=== PATIENT | female | born 1940 | race Caucasian/White ===

== ENCOUNTER → 2024-06-20 10:22 | Day surgery (SDC) | payer MEDICARE, OTHER, SELFPAY ==
[2024-06-20 11:35] LABS: % Basophils 0.5 % (0-2); % Eosinophils 2.5 % (0-6); % Immature Granulocytes 0.2 % (0-0.5); % Monocytes 10.4 % (1.7-9.3); % Neutrophils 60.4 % (42.2-75.2); Absolute Eosinophils 0.2 10^3/uL (0-0.7); Absolute Lymphocytes 1.6 10^3/uL (1.2-3.4); Absolute Monocytes 0.7 10^3/uL (0.1-0.6); Absolute Neutrophils 3.8 10^3/uL (1.4-6.5); Hemoglobin 12.8 g/dL (12.0-16.0); Mean Corpuscular Hgb 29.7 pg (27.0-31.0); Mean Corpuscular Volume 92.8 fL (81.0-99.0); Mean Platelet Volume 10.7 fL (7.4-10.4); Nucleated Red Blood Cells % 0 %; Platelet Count 299 10^3/uL (130-400); Red Blood Cell Count 4.31 10^6/uL (4.20-5.40); Red Cell Dist. Width 13.7 % (11.5-14.5); White Blood Cell Count 6.3 10^3/uL (4.8-10.8)
[2024-06-20 11:36] LABS: INR 0.97; PT 13.4 Sec (11.4-14.6)
[2024-06-20 11:37] LABS: APTT 43.2 Sec (23.4-35.0)
[2024-06-20 12:25] LABS: ALT (SGPT) 16 U/L (0-35); AST (SGOT) 19 U/L (14-36); Albumin 4.3 g/dl (3.5-5.0); Alkaline Phosphatase 107 U/L (38-126); Blood Urea Nitrogen 20 mg/dl (7-17); Calcium 9.3 mg/dl (8.4-10.2); Carbon Dioxide 22 mmol/L (22-30); Chloride 104 mmol/L (98-107); Glucose 174 mg/dl (70-99); Potassium 4.5 mmol/L (3.5-5.1); Sodium 139 mmol/L (135-145); Total Bilirubin 0.5 mg/dl (0.2-1.3); Total Protein 7.2 g/dl (6.3-8.2); eGFR 56.25
[2024-06-20 12:35] LABS: TSH Reflex To Free T4 1.63 uIU/ml (0.47-4.68)
[2024-06-20 13:12] LABS: Glycohemoglobin (HgbA1c) 7.4 % (4.0-5.6)
[2024-06-20 17:27] LABS: CA 125 22.4 U/mL (0-35)
== END ==
LOC: SDSPAT 10:22
PROVIDERS: ATTENDING PHYSICIAN Obstetrics & Gynecology Gynecologic Oncology; FAMILY PHYSICIAN Internal Medicine
DX: Z01.810 Encounter for preprocedural cardiovascular examination (principal); Z01.812 Encounter for preprocedural laboratory examination
CPT/HCPCS: 93005; 36415; 80053; 83036; 84443; 85025; 85610; 85730; 86304; 86850; 86900; 86901

== ENCOUNTER → 2024-06-24 10:17 | Outpatient (REF) | payer MEDICARE, OTHER, SELFPAY | LOC: RAD 10:17 | PROVIDERS: ATTENDING PHYSICIAN Obstetrics & Gynecology Gynecologic Oncology; FAMILY PHYSICIAN Internal Medicine | DX: C54.1 Malignant neoplasm of endometrium (principal); E11.9 Type 2 diabetes mellitus without complications; E78.2 Mixed hyperlipidemia; N18.9 Chronic kidney disease, unspecified | CPT/HCPCS: 71260; 74177; Q9967 ==

== ENCOUNTER 2024-07-02 06:04 | Day surgery (SDC) | payer MEDICARE, OTHER, SELFPAY ==
[2024-06-20 12:34] VITALS: BMI 48.3
--- NOTE | 2024-06-21 13:52 | PTCARENOTE ---
Abnormal EKG 06/20/[address] Madera, no further testing needed.
--- NOTE | 2024-06-25 13:19 | PTCARENOTE ---
Addendum entered by Felicia Gomez RN 06/25/24 13:27:
Hgb A1c 7.4 and GFR 56.25 both collected on 06/20/24 was also reported to Natalie @ 's office.
Original Note:
PTT 43.2 collected on 06/20/24; Natalie @ 's office was notified.
--- NOTE | 2024-07-01 05:54 | W.CON.GYNONC ---
Chief Complaint
-
Endometrial Cancer
History of Present Illness
83�year�old G0 woman presenting to me for management of endometrial cancer referred to me by . Patient apparently
had presented with couple days of bleeding postmenopausally. , An attempt was made to examine her in the office, pelvic
examination was difficult unable to place speculum and visualize the cervix. She was recommended to undergo D&C under
anesthesia. On May 29 she underwent dilation and curettage, sharp curettage of the endometrium and diagnostic
hysteroscopy was performed
Pathology shows grade 2 endometrioid adenocarcinoma, ER/PA positive, with intact mismatch repair proteins.
Past medical history significant for hypertension, type 2 diabetes, chronic kidney disease, obesity
past surgical history significant for bilateral total knee replacements, tonsillectomy
Medications include glimepiride and Lasix
Family history significant for mother with esophageal cancer, maternal grandfather with diabetes maternal grandmother with
stomach cancer
Social history significant for being single, lives and had provide [employer], denies tobacco alcohol or drug or marijuana use,
worked as a teacher
Allergies No�allergies�have�been�entered�for�this�patient.
Medications
calcium�magnesium�zinc�333�mg�133�mg�5�mg tablet
glimepiride�2�mg�tablet 1�p.o.�q.�day
Tylenol�325�mg�tablet prn
Medical History
Allergies
Allergies reflect when allergies were last updated in [employer].
latex Allergy (Verified 06/20/24 15:07)
Rash
sulfamethoxazole [From Bactrim] Allergy (Verified 06/20/24 14:54)
Rash
trimethoprim [From Bactrim] Allergy (Verified 06/20/24 14:54)
Rash
Physical Exam
Physical Exam
Pelvic�Examination: External�normal�labia,�urethra,�anus.� I�was�unable�to�examine�her�today�because�the�patient�could�not�get�on�the�examination�table�due�to�limited�range�of�motion involving�her�hips
General:�Well�developed,�well�nourished�patient.�In�no�acute�distress. Neck:�No�thyromegaly.�No�cervical�lymphadenopathy. Lungs:�Clear�to�auscultation.�Good�air�movement�bilaterally. Cardiac:�Regular�rate.�Regular�rhythm.�No�murmurs�appreciated.
Right�Breast:�No�masses�or�dimpling.�No�nipple�discharge. Left�Breast:�No�masses�or�dimpling.�No�nipple�discharge. Abdomen:�Abdomen�is�soft.�Non�tender�to�palpation.�Non�distended.�Hernia�present�in�the�Wide�mouth�umbilical�hernia.
Extremities:�No�edema.�Cyanosis�noted. Hematologic/Lymphatic:�No�palpable�lymphadenopathy. Musculoskeletal:�Normal�range�of�motion.�Strength�and�Tone�are�normal. Skin:�The�following�abnormality(ies)were�noted:�Bilateral�lower�extremities.
Neurologic:�Speech�is�fluent.�Normal�gait�and�station.�Cranial�nerves�intact.
Results
-
Diagnostic Imaging Report
SignedOrder #:[id number]
Exams: CT Chest/abd/pel W Iv Cont
PROCEDURE: CT Chest/abd/pel W Iv Cont
CLINICAL INDICATION: Endometrial carcinoma. Hysterectomy scheduled for July 02, 2024.
TECHNIQUE: Axial images through the chest, abdomen and pelvis following oral contrast and intravenous nonionic contrast administration with coronal and sagittal reformations. Automated dose reduction technique utilized.
COMPARISON: None.
FINDINGS:
Chest: Minimally heterogeneous appearance of the right lobe of the thyroid is noted. Evaluation is overall limited as a result of several factors including some beam hardening artifact from the patient's bilateral upper extremities and respiratory
motion artifact without gross focal parenchymal mass/consolidation. The trachea and central airways are patent. Residual oral contrast is seen within a nondilated thoracic esophagus. There is no gross significant hilar, mediastinal or bilateral
hilar lymphadenopathy. The heart is enlarged and there are likely coronary artery calcifications. Degenerative changes are seen within the thoracic spine.
Abdomen: Evaluation limited as a result of beam hardening artifact from the patient's bilateral upper extremities and lack of oral contrast opacification of portions of large and small bowel including the large bowel distal to the distal transverse
colon. Liver and spleen are particularly limited by beam hardening artifact from the patient's bilateral upper extremities without gross focal space-occupying lesion. Gallbladder is somewhat prominent in size without gross focal intrinsic
abnormality. Pancreas is somewhat atrophic without gross focal abnormality. Renal excretion is symmetric. There are a few nonspecific subcentimeter retroperitoneal lymph nodes. There is no intestinal obstruction or free air. There is a left-sided
anterior pelvic wall hernia containing loop of low lying nonobstructed transverse colon. There is diverticulosis of the sigmoid and descending colon. Degenerative changes are seen throughout the lumbar spine.
Pelvis: The urinary bladder is incompletely distended. Cannot exclude small bubble of air anteriorly within the urinary bladder. There is no true pelvis free fluid or significant lymphadenopathy. Degenerative changes of both hips are seen. Relative
small size uterus without gross focal intrinsic abnormality on this study.
IMPRESSION:
Evaluation limited by marked beam hardening artifact as well as some respiratory motion artifact, particularly limited are evaluation of the lungs, liver and spleen without gross focal space-occupying lesion.
Anterior left sided pelvic wall hernia containing loop of unremarkable low lying transverse colon, nonobstructed.
Distal colonic diverticulosis.
Nonspecific small volume oral contrast seen in the esophagus.
Incompletely distended urinary bladder, cannot exclude small air bubble within. Has there been recent urinary bladder instrumentation?
Few small nonspecific subcentimeter retroperitoneal lymph nodes.
Relative small size uterus without gross focal intrinsic abnormality seen on this study, patient with known history of endometrial carcinoma. No significant pelvic lymphadenopathy.
Electronically signed by Abe Kramer MD, 06/24/2024 5:12 PM
[employer] Dose Report: Up-to-date CT equipment and radiation dose reduction techniques were employed. CTDIvol: 24.0 - 53.1 mGy. DLP: 3036 mGy-cm.
Dictated By: Abe Kramer MD.
Dictated Date & Time: 06/24/24 1701
Impression / Plan
-
I�spoke�with�the�patient�and�her�friend�about�diagnosis�of�endometrial�cancer�presentation�as�well�as�management.�She�has�risk
factors�including�obesity�with�BMI�of�46,�hypertension�and�diabetes.�Unfortunately�during�today's�visit�I�was�unable�to�perform�a
pelvic�exam.�In�the�future�visits�we�will�ensure�that�she�arrives�for�an�exam�in�one�of�the�sites�where�we�have�motorized�tables. I�recommend�further�evaluation�with�CMP�CBC�CA125,�labs�including�hemoglobin�A1c�and�TSH�will�be�obtained
I�contacted�her�primary�care�physician�because�of�hypertension�in�the�office�today,�he�will�see�and�evaluate�patient�for�preoperative
evaluation�and�possible�antihypertensive�medication�I�recommend�a�CT�of�chest�abdomen�and�pelvis�with�IV�and�oral�contrast�to�be
done�next�week�her�treatment�will�be�surgery,�we�will�attempt�robotic�assisted�total�laparoscopic�hysterectomy�bilateral�salpingooophorectomy�,�Injection�of�cervix�with�ICG�dye�and�mapping�and�identification�and�excision�of�sentinel�lymph�nodes�in�th
e�pelvis. She�understands�that�surgery�will�be�done[facility]at[facility].�Risk�of�surgery�is�infection�bleeding�injury�to�adjacent�organs
DVT�pulmonary�embolism�and�cardiovascular�complications.�Very�likely�uterine�manipulator�cannot�be�placed�in�this�patient
because�of�virginal�state.�It�is�unclear�whether�the�uterine�specimen�can�be�delivered�through�the�vagina�or�whether�the�patient�will
need�mini�laparotomy�for�extraction�of�specimen.�We�discussed�that�surgery�is�outpatient�unless�she�has�needs�for�staying�in�the
hospital�postoperatively.�I�will�see�patients�2�weeks�after�surgery�and�evaluate�pathology�and�discuss�whether�she�needs�any adjuvant�treatment.�
[2024-07-02] VITALS (20 sets, daily range): BP systolic 100–158; BP diastolic 43–84; BMI 48.3
[2024-07-02] MEDS: NEURONTIN 300 MG PO (06:22)
[2024-07-02] MEDS: MOBIC 15 MG PO (06:22)
[2024-07-02] MEDS: TYLENOL 1000 MG PO (06:22)
[2024-07-02] MEDS: HEPARIN 5000 UNITS SC (06:24)
[2024-07-02 06:44] LABS: Glucose - Point of Care 175 mg/dl (70-99)
[2024-07-02] MEDS: NORMOSOL-R/PLASMALYTE-A 1000 IV ×2 (06:47→10:37)
[2024-07-02 09:12] LABS: Glucose - Point of Care 191 mg/dl (70-99)
[2024-07-02 09:52] LABS: Glucose - Point of Care 222 mg/dl (70-99)
[2024-07-02] MEDS: DILAUDID 0.25 MG IV ×2 (10:15→10:42)
[2024-07-02 10:22] LABS: Hematocrit 37.2 % (37.0-47.0); Hemoglobin 12.2 g/dL (12.0-16.0); Mean Corp Hgb Conc. 32.8 g/dL (33.0-37.0); Mean Corpuscular Hgb 30.6 pg (27.0-31.0); Mean Corpuscular Volume 93.2 fL (81.0-99.0); Mean Platelet Volume 10.5 fL (7.4-10.4); Platelet Count 264 10^3/uL (130-400); Red Blood Cell Count 3.99 10^6/uL (4.20-5.40); Red Cell Dist. Width 13.8 % (11.5-14.5); White Blood Cell Count 11.4 10^3/uL (4.8-10.8)
[2024-07-02 10:30] LABS: Blood Urea Nitrogen 17 mg/dl (7-17); Calcium 8.5 mg/dl (8.4-10.2); Carbon Dioxide 21 mmol/L (22-30); Chloride 105 mmol/L (98-107); Estimated Creatinine Clearance 68 ml/min; Glucose 236 mg/dl (70-99); Potassium 4.3 mmol/L (3.5-5.1); Sodium 136 mmol/L (135-145); eGFR > 60.00
[2024-07-02] MEDS: NOVOLOG vial 1 UNITS SC ×2 (10:30→11:54)
--- NOTE | 2024-07-02 11:01 | CON.HOSP ---
Consultation
-
Date/Time Consultation Requested: 07/02/2024 at 9:47 AM
Date/Time Consultation Performed: 07/02/2024 at 11 AM
Requesting Provider: Dr. Abe Torres
Performing Provider: Dr. Hong Scott
Reason for Consultation: Medical management
Family Physician
-
Family Physician: NO INTERVIEW UNKNOWN
Chief Complaint
-
Admitted for endometrial cancer
History of Present Illness
83-year-old female with diagnosis of endometrial cancer. Preoperatively her CT showed an ambulatory hernia containing a loop of transverse colon. Dr. Torres performed robotic assisted total hysterectomy with removal of ovaries and extensive lysis
of adhesions in the pelvis. Unable to do lymph nodes because of poor visualization. Hernia was left alone
Medical History
Past Medical History
Past Medical History: Reports Other
Additional Past Medical History:
Obesity, sciatica, umbilical hernia, arthritis, spinal stenosis, diabetes, chronic kidney disease grade 2 endometrial adenocarcinoma ER/VA positive
Past Surgical History: Reports Other
Additional Past Surgical History:
Right total knee arthroplasty 2004, left total knee arthroplasty 2005, tonsillectomy and adenoidectomy
Social History
Tobacco: Non-smoker
Alcohol: None
Drug: None
Personal: Single
Living: Alone
Employment: Retired (Teacher)
Family History
Family History: Other (Grandmother with esophageal carcinoma maternal grandfather with diabetes, maternal grandmother with peptic ulcer)
Allergies / Home Medications
Allergies reflects when Allergies were last updated in [employer].
Home Medications with original date entered in [employer]
Allergy/Medication List:
Allergies
Allergy/AdvReac Type Severity Reaction Status Date / Time
latex Allergy Rash Verified 07/02/24 06:08
sulfamethoxazole Allergy Rash Verified 07/02/24 06:08
[From Bactrim]
trimethoprim [From Bactrim] Allergy Rash Verified 07/02/24 06:08
Home Medications
acetaminophen 500 mg capsule 1,000 mg PO Q6H PRN pain 06/20/24
calcium 600 mg-D3 20 mcg-magnesium 50 lv-Xp-ocppsw-todd-boron tablet (Calcium 600-D3 Plus (mag-zinc)) 1 tab PO DAILY 06/20/24
glimepiride 2 mg tablet 2 mg PO DAILY 06/20/24
Review of Systems
-
A 12 point Review of Systems was completed except as noted: Yes
Respiratory: Denies Trouble Breathing
Cardiac: Denies Chest Pain
Musculoskeletal: Reports Other (left buttock area pain)
Physical Exam
Vital Signs
Vital Signs
Temp Pulse Resp BP Pulse Ox
97.8 F 61 17 102/45 97
07/02/24 09:37 07/02/24 10:45 07/02/24 10:45 07/02/24 10:45 07/02/24 10:45
Physical Exam
General: No Apparent Distress and Comfortable
Respiratory: Clear
Cardiac: S1/S2 and Regular Rhythm
GI: Soft and Other (lap wounds)
Neuro: Awake, AO x 3 and Nonfocal/Grossly Intact
Psych: Intact Judgement
Laboratory Results
-
Laboratory Results
07/02/24 10:06
07/02/24 10:06
Impression / Plan
-
IMPRESSION/PLAN:
CT scan chest abdomen pelvis 06/24/2024-anterior left-sided pelvic wall hernia, distal colonic diverticulosis, incompletely distended urinary bladder subcentimeter retroperitoneal lymph nodes
# Diabetes
Patient takes glimepiride as outpatient,restart when patient able to take p.o.
For now Continue Accu-Cheks with sliding scale coverage
Hemoglobin A1c 7.4
# Grade 2 endometrial adenocarcinoma ER/VA positive
Status post hysterectomy and bilateral oophorectomy by Dr. Torres 07/02/2024
Postoperative care, pain control
# Questionable history of CKD however GFR is more than 60 presently
# Right bundle branch block on EKG from 06/20/2024-no previous EKG available for comparison
# Obesity with a BMI of 48
# DVT prophylaxis- Lovenox
# Full code
D/W [facility]
D/W
Thank you for the consultation, we will follow the patient with you.
[2024-07-02 11:54] LABS: Glucose - Point of Care 220 mg/dl (70-99)
--- NOTE | 2024-07-02 13:09 | OR.RPT ---
Operative Report
Operative Report
Date of procedure: July 02, 2024
Preoperative diagnosis: Grade 2 endometrioid adenocarcinoma of uterus
Postoperative diagnosis same plus umbilical hernia containing loop of transverse colon, and morbid obesity
Procedure:
Robotic assisted total laparoscopic hysterectomy, bilateral salpingo-oophorectomy, pelvic washings
Robotic assisted pelvic enterolysis
Tap block
Surgeon: Abe Torres
Construction Teacher: Cameron Urias PA-C, JAVON Light
Anesthesia: General Endotracheal intubation
Estimated blood loss 100 cc
Complication: None
Specimen: Pelvic washings, uterus cervix bilateral tubes and ovaries
Procedure in detail: This patient was taken to the operating room for definitive management of grade 2 endometrioid adenocarcinoma of the uterus. She is 83 years of age, has significant ambulatory dysfunction mostly wheelchair-bound, was unable to
undergo examination in the office because of inability to get on the examination table. She has morbid obesity, hypertension, chronic kidney disease, type 2 diabetes and underwent imaging studies preoperatively that documented presence of loop of
transverse colon and an umbilical hernia likely chronic. Upon arrival to the operating room she was placed in operating table with assistance from multiple individuals, she was unable to transfer herself onto the operating table. Appropriate IVs
were placed she was placed under general anesthesia and intubated without any difficulty she was placed in lithotomy position using yellowfin stirrups and she was prepped under her large pannus as well as on the abdomen perineum and upper thighs her
arms were protected with foam along the patient's side for the first time I examined her in the operating room and noted that the introitus is somewhat small the cervix is without any gross pathology but it resides high in the pelvis external
genitalia and vagina is otherwise unremarkable. There is a sebaceous cyst in the right labia majora less than 1 cm in size.
Timeout procedure was carried out. She received 3 g of Ancef and 500 mg of Flagyl. She had already received heparin for prophylaxis subcutaneously preoperatively. Yañez catheter was placed under sterile conditions in the bladder. I went ahead
and visualize the cervix and grasped it in the anterior lip we went ahead and dilated the cervix, the uterine canal sounded to 8 cm. Uterine manipulator with a 2.5 cm ring was placed around the cervix this is the best size that I could fit through
the vaginal introitus. Following this vaginal cuff occluder balloon was insufflated. I a weighted injection of the cervix to ensure that we will be proceeding with a hysterectomy shortly. In the meantime Veress needle was placed just below the
left subcostal margin and insufflation of the abdomen with CO2 gas was completed to pressure of 15 mmHg. XI robotic port was placed approximately 25 cm cephalad to symphysis pubis and directly into the peritoneal cavity and under direct
visualization tap block was performed injection combination of ropivacaine and Decadron between muscle and peritoneum on the right and left upper quadrants of the abdomen as well as right and left lateral abdomen. Following this 8 mm X Xi robotic
ports were placed in the right upper quadrant left upper quadrant right and left lateral abdomen. Patient was placed in 28 degree Trendelenburg and robotic system was docked. There is a loop of bowel within the umbilical hernia which is very close
to her symphysis pubis and some of the omentum and mesentery of the bowel goes into the omentum some of the omentum and mesentery of the bowel goes into the, hernia sac. I was able to keep the camera on the left side and entered the pelvis. In the
upper abdomen there was no evidence of abnormality liver spleen stomach falciform ligament and diaphragms were normal omentum was unremarkable. We were able to collected washings in the pelvis and submitted this to pathology. There was extensive
evidence of sigmoid colon adhesion to the left tube and ovary likely due to prior diverticular disease I carefully dissected the colon away from the posterior aspect of the uterus as well as left tube and ovary. We sealed and divided both round
ligaments anterior and posterior leaves of the broad ligament were dissected open we explored the retroperitoneal spaces. Given the fact that we could identify the pelvic region I went ahead and took the manipulator out injected the cervix with ICG
dye and then this was repeated at the 3 and 9:00 locations specifically in 5 mm and 10 mm stations. I returned the manipulator back into the uterus and turned my attention back to the remainder of the surgery where I had left off before. Because
of the excessive amount of retroperitoneal adipose tissue I was unable to see the actual sentinel lymph nodes and because of the morbid obesity I was worried about possibility of not being able to repair a vascular injury should 1 occur. Because of
her medical issues I decided against performing any retroperitoneal lymph node dissection and went ahead and developed a bladder flap and I extended it below the level of the uterine cervix. Each of the infundibulopelvic ligaments were isolated I
used vessel sealer to seal and divide across both IP ligaments tubes and ovaries were left attached to the uterus the uterine arteries followed by cardinal ligaments followed by uterosacral ligaments were sealed and divided with vessel sealer.
Circumferential incision was made around the PAMELA ring. Specimen was amputated and was able to be delivered vaginally. Following this vaginal apices were closed with [id number] sutures of 0 Vicryl suture ligature in a [id number]-[id number] fashion.
After this a V-Loc suture was used to close the cuff starting from right to the left side and back to the right side. We irrigated the pelvis copiously and there was no obvious evidence of bleeding I checked all the major pedicles. I did place 3 g
of Liz powder over the raw retroperitoneal spaces to prevent postop bleeding. At this point we removed all the laparoscopic instruments released the pneumoperitoneum. As there incisions were all 8 mm in size there was no indication to close
fascia all skin incisions were closed with 4-0 Monocryl's in a subcuticular fashion. Vagina was inspected there was no evidence of bleeding Yañez catheter was removed patient was awakened extubated and returned back to recovery room stable awake
and extubated condition. Counts of laps instruments and needle was correct x 2. I was present and scrubbed for entire procedure as dictated above
Disposition: To PACU, awake alert extubated
Please note this patient has significant ambulatory dysfunction, she lives alone, she is using wheelchair for most of transfer, she had requested in advance if possible to stay overnight prior to return back home and hence was admitted under
extended stay orders.
[2024-07-02 14:14] LABS: Blood Urea Nitrogen 19 mg/dl (7-17); Calcium 8.8 mg/dl (8.4-10.2); Carbon Dioxide 25 mmol/L (22-30); Chloride 103 mmol/L (98-107); Estimated Creatinine Clearance 68 ml/min; Glucose 230 mg/dl (70-99); Potassium 4.5 mmol/L (3.5-5.1); Sodium 136 mmol/L (135-145); eGFR > 60.00
[2024-07-02] MEDS: AMARYL PO (14:41)
[2024-07-02] MEDS: TYLENOL 650 MG PO ×3 (15:08→23:10)
[2024-07-02] MEDS: ROXICODONE 5 MG PO (15:09)
[2024-07-02] MEDS: LOVENOX 40 MG SC (18:28)
[2024-07-02] MEDS: MOTRIN 400 MG PO ×2 (18:29→23:10)
[2024-07-02 18:36] LABS: Glucose - Point of Care 236 mg/dl (70-99)
[2024-07-02] MEDS: COLACE 100 MG PO (19:38)
[2024-07-02 21:27] LABS: Glucose - Point of Care 256 mg/dl (70-99)
[2024-07-03 03:00] VITALS: BP 122/68
[2024-07-03 07:09] LABS: % Basophils 0.1 % (0-2); % Immature Granulocytes 0.4 % (0-0.5); % Lymphocytes 11.2 % (20.5-51.1); % Monocytes 7.4 % (1.7-9.3); % Neutrophils 80.9 % (42.2-75.2); Absolute Lymphocytes 0.9 10^3/uL (1.2-3.4); Absolute Monocytes 0.6 10^3/uL (0.1-0.6); Absolute Neutrophils 6.4 10^3/uL (1.4-6.5); Hematocrit 35.8 % (37.0-47.0); Hemoglobin 12.4 g/dL (12.0-16.0); Mean Corp Hgb Conc. 34.6 g/dL (33.0-37.0); Mean Corpuscular Hgb 30.5 pg (27.0-31.0); Mean Platelet Volume 11.2 fL (7.4-10.4); Nucleated Red Blood Cells % 0 %; Platelet Count 240 10^3/uL (130-400); Red Blood Cell Count 4.07 10^6/uL (4.20-5.40); Red Cell Dist. Width 13.5 % (11.5-14.5); White Blood Cell Count 7.9 10^3/uL (4.8-10.8)
[2024-07-03 07:34] LABS: ALT (SGPT) 16 U/L (0-35); AST (SGOT) 23 U/L (14-36); Albumin 3.7 g/dl (3.5-5.0); Alkaline Phosphatase 76 U/L (38-126); Blood Urea Nitrogen 24 mg/dl (7-17); Calcium 8.9 mg/dl (8.4-10.2); Carbon Dioxide 19 mmol/L (22-30); Chloride 105 mmol/L (98-107); Estimated Creatinine Clearance 62 ml/min; Glucose 231 mg/dl (70-99); Sodium 135 mmol/L (135-145); Total Bilirubin 0.5 mg/dl (0.2-1.3); Total Protein 6.3 g/dl (6.3-8.2); eGFR 56.25
[2024-07-03 07:53] LABS: Glucose - Point of Care 252 mg/dl (70-99)
[2024-07-03 08:00] VITALS: BP 146/73
[2024-07-03] MEDS: MOTRIN 400 MG PO ×2 (09:37→12:36)
[2024-07-03] MEDS: TYLENOL 650 MG PO ×2 (09:38→12:36)
[2024-07-03] MEDS: COLACE 100 MG PO (09:38)
[2024-07-03] MEDS: AMARYL 2 MG PO (09:38)
[2024-07-03] MEDS: NOVOLOG FLEXPEN 3 UNITS SC ×2 (09:41→12:37)
[2024-07-03] MEDS: PROTONIX 40 MG PO (09:41)
[2024-07-03 12:25] LABS: Glucose - Point of Care 183 mg/dl (70-99)
--- NOTE | 2024-07-03 13:29 | W.PN.GYNONC ---
Today's Communication
-
discharge home
Impression / Plan
-
I�spoke�with�the�patient�and�explained procedures performed and findings.
She is doing well today, she stayed in the hospital overnight because of her level of ambulatory dysfunction. She does not have any new medical problems or condition that requires any prolonged hospitalization and I recommended discharge home.
She is requesting visiting nurse to be set up for her, she also would like to see possibility of arranging for outpatient home PT.
She is scheduled to return back to see me on July 15 for office visit to review pathology results. All her questions were answered
Discharge instructions were reviewed
Case management consult and PEt eval placed.
Abe Melissa
[phone]
[facility]
Subjective / Interval History
-
Postoperative day #1, status post robotic assisted total laparoscopic hysterectomy bilateral salpingo-oophorectomy with washings for endometrial cancer
She reports to be doing well, denies any nausea or vomiting, is passing flatus. She has been able to ambulate to the commode with walker.
She has minimal to no pain. Just finished her lunch and ate salmon.
Objective Data
-
Lab Results:
07/03/24 06:33
07/03/24 06:33
Physical Exam
Vital Signs / I&O
Vitals
Temp Pulse Resp BP Pulse Ox
97.9 F 81 20 146/73 97
07/03/24 08:00 07/03/24 08:00 07/03/24 08:00 07/03/24 08:00 07/03/24 08:00
I&O
07/01/24 07/02/24 07/03/24 07/04/24
06:59 06:59 06:59 06:59
Intake Total 1190 / 1190
Output Total 150 / 150
Balance 1040 / 1040
Physical Exam
General: Well Developed and No Apparent Distress
HEENT: Normocephalic
Respiratory: Clear and Non Labored Respirations
Cardiac: S1/S2 and Regular Rhythm
GI: Soft, Non Tender, Non Distended, Normal Bowel Sounds and Other (Incisions for laparoscopic ports are intact with no erythema or drainage)
Neuro: Awake, Alert and Oriented
Data Reviewed
-
Lab Data: Labs Reviewed
--- NOTE | 2024-07-03 13:54 | CM ---
Addendum entered by Gracie Spivey RN 07/03/24 15:37:
[facility] confirmed acceptance.
Addendum entered by Gracie Spivey RN 07/03/24 14:12:
CM met with patient in room. Patient is agreeable to [facility] home care as she's had them in the past. Referral sent via [facility] to [facility].
PLAN: Home with [facility].
Original Note:
CM reviewed medical records. JASON is pending PT evaluation for further discharge planning efforts.
[2024-07-03] MEDS: NORMOSOL-R/PLASMALYTE-A IV (14:00)
[2024-07-03 15:04] VITALS: BP 123/63
--- NOTE | 2024-07-03 15:16 | W.PN.HOSP.TC ---
Today's Communication/Plan
-
Agree with discharge plan
Assessment / Plan
Assessment / Plan
She is feeling well and hoping to go home.
Seen earlier. Late documentation
Cardiovascular system S1-S2 appreciated
Chest clear to auscultation
Abdomen laparoscopic wounds healthy and stable
# Diabetes
Hemoglobin A1c is 7.4. Continue glimepiride 2 mg. I am afraid to increase it to 3 mg as she lives by herself and hemoglobin A1c 7.4.
We did add NovoLog this morning and hoping that the elevated sugars are secondary to postoperative stress and will resolve. She was instructed to follow blood sugars at home and if over 200 to report to her PCP to make med adjustments. Healthy
diet also discussed
# Grade 2 endometrial adenocarcinoma ER/IA positive
Status post hysterectomy and bilateral oophorectomy by Dr. Torres 07/02/2024
Postoperative care, pain control
# Questionable history of CKD stage II however GFR is stable presently
# Right bundle branch block on EKG from 06/20/2024-no previous EKG available for comparison
# Obesity with a BMI of 48-healthy diet and lifestyle discussed.
# DVT prophylaxis- Lovenox
# Full code
D/W RN and
Anticipated Discharge: Today
Subjective/Interval History
-
Date of Service: July 03, 2024
Objective Data
-
Labs:
Laboratory Results
07/03/24
06:33
WBC 7.9
Hgb 12.4
Hct 35.8 L
Plt Count 240
Sodium 135
Potassium 5.0
Chloride 105
Carbon Dioxide 19 L
BUN 24 H
Creatinine 1.0
Glucose 231 H
Calcium 8.9
Total Bilirubin 0.5
AST 23
ALT 16
Alkaline Phosphatase 76
Vital Signs:
Vital Signs
Temp Pulse Resp BP Pulse Ox
97.8 F 79 20 123/63 96
07/03/24 15:04 07/03/24 15:04 07/03/24 15:04 07/03/24 15:04 07/03/24 15:04
I&O
07/02/24 07/03/24 07/04/24
06:59 06:59 06:59
Intake Total 1190 / 1190
Output Total 150 / 150
Balance 1040 / 1040
== END 2024-07-03 16:20 | disposition home or self-care (01) ==
LOC: SDS 06:04
PROVIDERS: ATTENDING PHYSICIAN Obstetrics & Gynecology Gynecologic Oncology; CONSULT PHYSICIAN Hospitalist
DX: C54.1 Malignant neoplasm of endometrium (principal); K42.0 Umbilical hernia with obstruction, without gangrene; N73.6 Female pelvic peritoneal adhesions (postinfective); N94.89 Other specified conditions associated with female genital organs and menstrual cycle; I12.9 Hypertensive chronic kidney disease with stage 1 through stage 4 chronic kidney disease, or unspecified chronic kidney disease; R26.89 Other abnormalities of gait and mobility; Z99.3 Dependence on wheelchair; Z17.0 Estrogen receptor positive status [ER+]; Z17.21 Progesterone receptor positive status; E66.01 Morbid (severe) obesity due to excess calories; Z68.42 Body mass index [BMI] 45.0-49.9, adult
CPT/HCPCS: 58571; 88309; 80048; 80053; 82962; 85025; 85027; 86900; 86901; 88112; 97116; 97161

== ENCOUNTER → 2025-03-05 12:35 | Outpatient (REF) | payer OTHER, SELFPAY | LOC: RAD 12:35 | PROVIDERS: ATTENDING PHYSICIAN Obstetrics & Gynecology Gynecologic Oncology; FAMILY PHYSICIAN Internal Medicine | DX: C54.1 Malignant neoplasm of endometrium (principal); N18.9 Chronic kidney disease, unspecified; E11.9 Type 2 diabetes mellitus without complications; E78.2 Mixed hyperlipidemia | CPT/HCPCS: 71260; 74177; Q9967 ==